=== PATIENT | male | born 1995 | race Hispanic/Latino ===

== ENCOUNTER 2022-03-29 01:46 | Inpatient (IN) | payer SELFPAY ==
[2022-03-29] VITALS (32 sets, daily range): BP systolic 96–128; BP diastolic 46–103
[~2022-03-29] VITALS: Ht 157.5 cm; Wt 63.0 kg
--- NOTE | 2022-03-29 01:46 | NUR ---
PT IN ROOM VIA EMS FOR TRIAGE. UNABLE TO ASKED PT QUESTION. PER EMS, PT IS INTOXICATED AND WAS COMBATIVE. 350MG OF KETAMINE WAS GIVEN PRIOR TO ARRIVAL.
--- NOTE | 2022-03-29 02:30 | NUR ---
RT AND DR TO BEDSIDE. PT SUCTIONED TO MAINTAIN SAT.
--- NOTE | 2022-03-29 02:59 | NUR ---
PT SAT'S DROPPING TO [address] AND RT AT BEDSIDE. PT BEING BAGGED IN PREP FOR INTUBATION. PT ADMINISTERED ETOMADATE 20 MG IV AND INTUBATION STARTED BY DR. BOWIE. DIFFICULT INTUBATION. PT BAGGED WHILE CMAC PREPARED. PT INTUBATED WITH A 7.5 ET TUBE. 24 AT LIP LINE. BBS AUSCULTATED AFTER INTUBATION. # 18 OG INSERTED AND TO LIS. DRAINING PINK PARTIALLY DIGESTED FOOD. # 18 MIDDLETON INSERTED WITHOUT DIFFICULTY. TO GRAVITY DRAINAGE. CLEAR YEL.
[2022-03-29 03:04] LABS: BASO% 0.3 % (0-3); EOS% 0.1 % (0-8); HEMOGLOBIN 14.9 g/dl (14.0-18.0); IMMATURE GRANULOCYTES 0.5 % (0.0-5.0); LYMPH% 9.2 % (15-41); MEAN CELL VOLUME 93.8 fL CALC (80.0-100.0); MEAN CORPUSCULAR HGB 31.8 pG CALC (26.0-32.0); MEAN CORPUSCULAR HGB CONC 33.9 g/dL CAL (32.0-36.0); MONO% 3.3 % (2-13); NEUT# 13.45 thou/uL (1.82-7.42); NEUT% 86.6 % (42-76); RED BLOOD COUNT 4.69 mill/uL (4.70-6.10); RED CELL DISTRI WIDTH 11.6 % (11.5-15.5)
--- NOTE | 2022-03-29 03:19 | NUR ---
PROPAFOL ORDERED AND STARTED AT 5 MG/KG/MIN VIA IV SITE. PORTABLE CHEST COMPLETED AND PLACEMENT OF TUBS VIRIFIED.
[2022-03-29 03:22] LABS: ALBUMIN 5.3 g/dL (3.2-5.0); ALKALINE PHOSPHATASE 144 u/l (38-126); ANION GAP 20 (6-22 (CALC)); BILIRUBIN, TOTAL 0.6 mg/dL (0.2-1.3); BUN 12 mg/dL (9-20); BUN/CREATININE RATIO 13 (12-20 (CALC)); CARBON DIOXIDE 20 mmol/l (22-30); CHLORIDE 111 mmol/l (95-108); CREATININE 0.9 mg/dL (0.7-1.3); ETHYL ALCOHOL 278 mg/dl (0-30); GFR FOR AFR.AMER. > 60 ML/MIN (>=60 (CALC)); GFR OTHER RACES > 60 ML/MIN (>=60 (CALC)); POTASSIUM 3.9 mmol/l (3.5-5.1); SGOT/AST 62 u/l (17-59); SODIUM 147 mmol/l (137-146); TOTAL PROTEIN 8.2 g/dL (6.3-8.2)
[2022-03-29 03:59] LABS: URINE BILIRUBIN - DIPSTICK NEGATIVE (NEGATIVE); URINE BLOOD DIPSTICK TRACE-INTACT (NEGATIVE); URINE COLOR YELLOW; URINE GLUCOSE - DIPSTICK NEGATIVE (NEGATIVE); URINE KETONE NEGATIVE (NEGATIVE); URINE LEUK ESTERASE NEGATIVE (NEGATIVE); URINE PH 6.5 (4.5-8.0); URINE PROTEIN - DIPSTICK TRACE mg/dL (NEG-TRACE); URINE UROBILINOGEN - DIPSTICK 0.2 E.U./dL (0.2)
[2022-03-29 04:04] LABS: URINE NITRITE - DIPSTICK NEGATIVE (Negative)
--- NOTE | 2022-03-29 04:35 | NUR ---
PT STARTED TO VOMIT, SUCTIONED PT AND CLEANED HIM UP
--- NOTE | 2022-03-29 05:25 | NUR ---
BEDDINGS WERE CHANGED AND RT CAME DOWN AND CLEANED TUBING. PT WAS RESUCTIONED AND REPOSITIONED.
--- NOTE | 2022-03-29 06:43 | NUR ---
PT WOKE UP WHILE UNDER PROPOFOL AND PULLED HIS INTUBATION OUT. VITALS ARE STABLE, PT OPEN HIS EYES AND ATTEMPTED TO SPEAK. UNABLE TO COMPREHEND WHAT THE PT IS SAYING.
--- NOTE | 2022-03-29 07:00 | NUR ---
PT. SELF EXTUBATED. CURRENTLY ON RA WITH O2 SAT OF 97%.
--- NOTE | 2022-03-29 09:59 | NUR ---
Patient decides to leave AMA. Multiple attempts made to ecourage patient to remain here for continued treatment. Explained to patient all risks of leaving against medical advice including . Pt verbalized understanding of all risks. Pt also encouraged to return to [facility] at any time, especially if symptoms continue or become worse. Pt verbalized understanding. Patient accompanied by friend who agreed to look after and transport patient.
--- NOTE | 2022-03-29 10:24 | NUR ---
PT CALLED FRIENDS TO COME PICK HIM UP HE FELT THAT HE WAS NOT SICK AND DID NOT NEED HOSPITALIZATION. IVs WERE REMOVED, MONITORS REMOVED, GOWNS X 2 PROVIDED PER CLOTHES BEING CUT OFF BY EMS. PT AWARE THAT HE COULD RETURN IF NEEDED, AMBULATED TO LOBBY WITH STEADY GAIT.
== END 2022-03-29 10:00 | disposition left against medical advice (07) | DRG 894 ==
LOC: ED 01:46 → ED-I 04:47 → ED 05:02 → ED-I 05:03 → EDBD 07:10 → ED-I 10:00
PROVIDERS: Emergency Medicine; ADMIT Internal Medicine; ATTEND Internal Medicine
PROC: 0T9B70Z Drainage of Bladder with Drainage Device, Via Natural or Artificial Opening (ICD-10-PCS; principal; 2022-03-29)
PROC: 0BH17EZ Insertion of Endotracheal Airway into Trachea, Via Natural or Artificial Opening (ICD-10-PCS; 2022-03-29)
PROC: 5A1935Z Respiratory Ventilation, Less than 24 Consecutive Hours (ICD-10-PCS; 2022-03-29)
DX: F10.129 Alcohol abuse with intoxication, unspecified (principal); Y90.8 Blood alcohol level of 240 mg/100 ml or more